=== PATIENT | female | born 1985 | race Caucasian/White ===

== ENCOUNTER 2023-04-30 16:40 | Emergency (ER) | payer MEDICAID ==
[~2023-04-30] VITALS: Ht 160 cm; Wt 123.8 kg
[2023-04-30 16:48] VITALS: BP 102/60; PULSE 89; RESP 18; TEMP 98.7; O2SAT 99
[2023-04-30] MEDS ORDERED: IBUP-2213 PO (17:28)
[2023-04-30] MEDS: KETOROLAC 30 MG/ML VIAL IM ONE (17:37)
== END 2023-04-30 17:58 | disposition home or self-care (01) ==
LOC: MED 16:40
DX: T23.101A Burn of first degree of right hand, unspecified site, initial encounter (principal); T31.0 Burns involving less than 10% of body surface; Z79.899 Other long term (current) drug therapy; X08.8XXA Exposure to other specified smoke, fire and flames, initial encounter; Y93.89 Activity, other specified; Y92.89 Other specified places as the place of occurrence of the external cause; Y99.8 Other external cause status
CPT/HCPCS: 96372; 99283; J1885